=== PATIENT | female | born 1985 | race Two or more races ===

== ENCOUNTER → 2017-05-17 | Emergency (ER) | payer OTHER ==
[~2017-05-17] VITALS: Ht 162.6 cm; Wt 83.9 kg
[~2017-05-17] MED LIST: SYNTHROID75 MCG
== END | disposition home or self-care (01) ==
LOC: ER 03:10
DX: Z34.82 Encounter for supervision of other normal pregnancy, second trimester (principal); G40.89 Other seizures
CPT/HCPCS: 70551

== ENCOUNTER 2017-08-15 13:29 | Outpatient (CLI) | payer OTHER ==
[2017-08-15] MEDS ORDERED: ATABEX DHA 200200 MG PO (14:27)
[2017-08-15] MEDS ORDERED: TRILEPTAL300 MG PO (14:28)
== END 2017-08-16 13:49 | disposition home or self-care (01) ==
LOC: OBS/DEL 13:29
DX: O26.893 Other specified pregnancy related conditions, third trimester (principal); G40.89 Other seizures; O60.03 Preterm labor without delivery, third trimester; Z34.83 Encounter for supervision of other normal pregnancy, third trimester

== ENCOUNTER 2017-09-30 13:48 | Inpatient (IN) | payer OTHER ==
[~2017-09-30] VITALS: Ht 152.4 cm; Wt 3.2 kg
[~2017-09-30 13:48] MED LIST changes: +ATABEX DHA 200200 MG PO; +TRILEPTAL300 MG PO
[2017-10-14] MEDS ORDERED: FOLIC ACID1 MG PO (09:51)
[2017-10-14] MEDS ORDERED: ZANTAC150 MG PO (09:51)
[2017-10-20] MEDS ORDERED: PRENATAL 19 TA1 EACH PO (07:26)
[2017-10-22] MEDS ORDERED: NAPROXEN500 MG PO (07:46)
[2017-10-22] MEDS ORDERED: COLACE100 MG PO (07:46)
== END 2017-10-22 12:15 | disposition home or self-care (01) | DRG 766 ==
LOC: LDR 10-20 06:46 → OB/GYN 10-20 06:46 → O/R 10-20 08:20 → OB/GYN 10-20 13:18 → LDR 10-22 08:30 → OB/GYN 10-22 12:15
PROVIDERS: Specialist
PROC: 0UL70ZZ Occlusion of Bilateral Fallopian Tubes, Open Approach (ICD-10-PCS; 2017-10-20)
PROC: 4A1HXCZ Monitoring of Products of Conception, Cardiac Rate, External Approach (ICD-10-PCS; 2017-10-20)
PROC: 10D00Z1 Extraction of Products of Conception, Low, Open Approach (ICD-10-PCS; principal; 2017-10-20 10:00)
DX: O99.354 Diseases of the nervous system complicating childbirth (principal); O99.824 Streptococcus B carrier state complicating childbirth; O99.284 Endocrine, nutritional and metabolic diseases complicating childbirth; Z3A.39 39 weeks gestation of pregnancy; Z37.0 Single live birth; Z30.2 Encounter for sterilization

== ENCOUNTER 2017-12-13 18:14 | Emergency (ER) | payer OTHER ==
[~2017-12-13] VITALS: Ht 162.6 cm; Wt 81.6 kg
[~2017-12-13 18:14] MED LIST changes: +COLACE100 MG PO; +FOLIC ACID1 MG PO; +NAPROXEN500 MG PO; +PRENATAL 19 TA1 EACH PO; +ZANTAC150 MG PO
== END 2017-12-13 21:37 | disposition home or self-care (01) ==
LOC: ER 18:14
DX: G40.89 Other seizures (principal)